=== PATIENT | female | born 1980 | race African-American/Black ===

== ENCOUNTER 2019-04-23 16:38 | Emergency (ER) | payer OTHER ==
[~2019-04-23] VITALS: Ht 165.1 cm; Wt 72.6 kg
[2019-04-23 17:19] LABS: ABSOLUTE NEUTROPHILS 2.6 thou/uL (1.4-8.2); BASOPHILS 0.8 % (0.0-2.0); EOSINOPHILS 1.1 % (0.0-3.0); HEMATOCRIT 40.3 % (37.0-47.0); HEMOGLOBIN 13.2 gm/dL (12.0-15.0); LYMPHOCYTES 41.8 % (24.0-44.0); MCH 29.4 pg (26.0-34.0); MCHC 32.6 g/dL (28.0-37.0); MCV 89.9 fL (80.0-100.0); MONOCYTES 10.1 % (1.0-8.0); PLATELET COUNT 252 thou/uL (150-400); POLYS 46.2 % (36.0-66.0); RBC 4.48 mil/uL (4.20-5.00); RDW 13.7 % (10.5-14.5); WBC 5.7 thou/uL (4.0-11.0)
[2019-04-23 17:21] LABS: URINE BILIRUBIN NEGATIVE (Negative); URINE BLOOD 3+ (Negative); URINE CLARITY CLEAR; URINE COLOR YELLOW; URINE GLUCOSE-RANDOM* NEGATIVE (Negative); URINE KETONES NEGATIVE (Negative); URINE LEUKOCYTES-REFLEX NEGATIVE (Negative); URINE NITRITE-REFLEX NEGATIVE (Negative); URINE PROTEIN (DIPSTICK) NEGATIVE (Negative); URINE SPECIFIC GRAVITY <= 1.005 (1.005-1.035); URINE UROBILINOGEN 0.2 E.U./dl (0.2-1.0)
[2019-04-23 17:22] LABS: CALCIUM 9.6 mg/dL (8.5-10.1); CREATININE 0.8 mg/dL (0.6-1.0)
[2019-04-23 17:28] LABS: ALBUMIN 3.9 g/dL (3.4-5.0); TOTAL BILIRUBIN 0.4 mg/dL (<0.1-1.0); TOTAL PROTEIN 8.3 g/dL (6.4-8.2)
[2019-04-23 17:36] LABS: CASTS None Seen /LPF (None Seen); CRYSTALS None Seen /LPF (None Seen); SQUAMOUS 0-3 Few /LPF (0-3)
[2019-04-23 17:37] LABS: BACTERIA-REFLEX >30 Many /HPF (None Seen); URINE RBC 0-2 Rare /HPF (0-2); URINE WBC-REFLEX 0-5 Rare /HPF (0-5)
[2019-04-23] MEDS ORDERED: ULTRAM 50MG TAB50 MG PO (20:42)
[2019-04-23] MEDS ORDERED: CARAFATE 1 GM TA1 G1 PO (20:42)
[2019-04-23 21:05] VITALS: BP 120/83
== END 2019-04-23 21:58 | disposition home or self-care (01) ==
LOC: ER 16:38
PROVIDERS: Emergency Medicine; Nurse Practitioner
DX: K29.70 Gastritis, unspecified, without bleeding (principal); N80.9 Endometriosis, unspecified